=== PATIENT | male | born 1980 | race Two or more races ===

== ENCOUNTER 2017-04-17 19:59 | Emergency (ER) | payer SELFPAY ==
--- NOTE | ~2017-04-17 | CR127 ---
[facility] A Service of [facility] & [facility] RADIOLOGY TEXT RESULTS PATIENT: ARIE FARR LOCATION: CFTX : 76 UNIT #: [id number] AGE: [address]: Alexa Nicole APRN SEX: M ORDER DR: [id number] [facility] [address] [place], [place] [address] [id number] E MR#: [id number] Acc #: [id number] NAME: ARIE FARR : 1980 SEX: M STUDY DATE/TIME: 04/17/2017 21:00 UNIT: [facility] ROOM: STUDY DESCRIPTION: CR Foot Complete Min 3 View Rt Attending Physician: Alexa Nicole A.P.R.N. Ordering Physician: Alexa Nicole A.P.R.N. Primary Care Physician: Primary Care Physician No MEDICAL IMAGING REPORT This report is preliminary unless electronic signature is present EXAM Right foot, 04/17/2017 HISTORY 36-year-old male with right foot pain for 2 days. Possible foreign body/infection. COMPARISON Right foot, 11/12/2016 FINDINGS Three views of the right foot demonstrate no radiopaque foreign bodies. Soft tissues are unremarkable. No acute bony abnormality. IMPRESSION Unremarkable right foot. No fracture or radiopaque foreign body. Dictated by... Asa Regalado M.D. THIS IS AN ELECTRONICALLY VERIFIED REPORT Asa Regalado M.D. at 04/18/2017 10:25 AM ELVA/betzy TD: 04/17/2017 21:55 JOB #: [id number] MEDICAL IMAGING REPORT Page 1 of 1 COPY
[~2017-04-17 19:59] MED LIST: AMITRYPTYLINE PO; AMOXICILLIN500 M1 PO; BACTRIM DS TABL1 TA1 PO; BACTRIM DS TABL1 TA2 PO; BENADRYL25 MG PO; COLACE PO; COZAAR100 MG PO; CRESTOR PO; HYDROCODON-ACE1 EAC7 PO; IBUPROFEN PO; IBUPROFEN600 MG PO; JOCK ITCH RELIE15 GM TP; LOTRIMIN 1% CR30 GM EXT; MOTRIN400 M1 PO; ROBITUSSIN AC PO; ZYRTEC PO; ZYRTEC10 M2 PO
== END 2017-04-17 21:40 | disposition home or self-care (01) ==
LOC: CED 19:59 → CFTX 19:59
DX: M72.2 Plantar fascial fibromatosis (principal); F17.200 Nicotine dependence, unspecified, uncomplicated
CPT/HCPCS: 29405; 73630; 96372; 99283; J1885